=== PATIENT | female | born 1965 | race Caucasian/White ===

== ENCOUNTER 2018-05-19 11:32 | Emergency (ER) | payer SELFPAY ==
[2018-05-19] VITALS (7 sets, daily range): BP systolic 123–175; BP diastolic 59–92; PULSE 59–68; RESP 15–22; TEMP 36.8; O2SAT 95–99; BMI 55.0
--- NOTE | 2018-05-19 11:55 | EKG12_ITS ---
Test Reason : CP Blood Pressure : / mmHG Vent. Rate : 061 BPM Atrial Rate : 061 BPM P-R Int : 138 ms QRS Dur : 070 ms QT Int : 404 ms P-R-T Axes : 047 -20 -25 degrees QTc Int : 406 ms Normal sinus rhythm Low voltage QRS Inferior infarct , age undetermined Abnormal ECG Confirmed by NORA THORNTON, ROBYN ([id number]), photograph editor KAROLINA JIMENEZ ([id number]) on 05/23/2018 11:42:16 AM Referred By: ELVIA Confirmed By:ROBYN MELENDEZ MD
--- NOTE | 2018-05-19 11:55 | RAD_ITS ---
STUDY: X-RAY CHEST REASON FOR EXAM: Female, 53 years old. Chest pain. TECHNIQUE: Single AP portable view of the chest. COMPARISON: None. FINDINGS: Low lung volumes. Cardiac silhouette unremarkable. Pulmonary vascularity unremarkable. Aorta unremarkable. No focal patchy airspace opacities. No pleural effusions. Upper abdomen unremarkable. Osseous structures intact. No pneumothorax. Degenerative changes of the spine. RAD/Chest 1 View (Portable) IMPRESSION: No acute cardiopulmonary findings Electronically Signed: Scott Rose DO at 12:34 EDT Tel , Service support ,
--- NOTE | 2018-05-19 11:56 | ED.VIS.GEN ---
History of Present Illness Chief Complaint: Chest Pain Detail of Chief Complaint: Onset 11 AM while using computer Informant: Patient Onset: Today Context: Sudden Onset Timing: Continuous Quality: Pressure mid chest Location: Central Current Severity: Mild Maximum Severity: Moderate Worsened by: Nothing Relieved by: Nothing Associated Symptoms: Bilateral jaw pain and tingling right upper extremity, mild dyspnea Narrative: Patient is a middle-aged woman who has history of panic attacks presents with chest heaviness that did not subside with relaxation techniques and associated with bilateral jaw pain, right upper extremity numbness and mild shortness of breath. She denied nausea or diaphoresis. She denies history of PE or DVT. She had a hysterectomy 5 years ago for stage Ib uterine cancer. She denies recent surgery, travel, immobilization. She denies leg pain, swelling or discoloration. Father had cardiac catheterization with angioplasty early 50s. She states he was a smoker and she is not. She has no other complaints. - Past Medical History (1) Panic attacks Status: Acute Past Medical History - Allergies and Home Meds Allergies/Adverse Reactions: Allergies doxycycline Allergy (Verified 05/19/18 11:42) Wong Primary Care Physician: Care Physician,No Primary [Primary Care Provider] - Prior records reviewed: Yes Surgical History: hysterectomy Lives: Spouse/ Significant Other Smoking Status: Never smoker Alcohol: None Drugs: None Review of Systems General: Denies: Chills, Fever, Malaise, Sweats Eyes: Denies: Visual changes - bilaterally, Blurred Vision - bilaterally, Diplopia ENT: Denies: Bilateral ear pain, Rhinorrhea, Sore throat Cardiovascular: Reports: Chest pain Respiratory: Reports: Dyspnea. Denies: Cough, Sputum, Dyspnea on exertion, Orthopnea, Paroxysmal nocturnal dyspnea Gastrointestinal: Reports: Nausea - When she eats greasy food. Denies: Abdominal pain Genitourinary: Denies: Dysuria, Hematuria, Frequency Musculoskeletal: Denies: Back pain, Extremity Pain Skin: Denies: Rash, Wounds Neurological: Denies: Headache, Weakness, Numbness Psych: Reports: Anxiety Endocrine: Denies: Polyuria, Polydipsia Allergy: Denies: Uticaria Physical Exam Vital Signs/Narrative: Vital Signs Temp Pulse Resp BP Pulse Ox 05/19/18 11:34 98.2 F 65 20 H 175/92 H 99 Inital Vital Signs reviewed: Yes General: Well nourished, Well developed, No Acute Distress Head: Normocephalic, Atraumatic Eyes: Perrl, EOMI ENT: Moist mucous membranes, No rhinorrhea Neck: Supple, Nontender Cardiovascular: Regular rate, Regular rhythm, No murmurs Respiratory: No distress, CTA bilaterally, Chest nontender Abdomen: Soft, Nontender, Nondistended, Normal bowel sounds Back: Nontender, Normal Inspection Extremities: Nontender, No edema, - - There is no asymmetry, swelling, discoloration, leg vein distention, palpable cords or tenderness along the distribution of the deep venous system. Skin: Normal color, No rash Neurological: Alert, Oriented x3, Cranial nerves II-XII grossly intact, Normal Strength, Normal Sensation Psychological: Normal affect, Normal Mood Diagnostic/Tx/Re-eval Impressions Chest X-Ray 05/19/18 11:55 IMPRESSION: No acute cardiopulmonary findings Electronically Signed: Scott Rose DO at 12:34 EDT Tel , Service support , 05/19/18 11:55 Chest 1 View (Portable) [RAD] Stat Laboratory Results 05/19/18 05/19/18 12:25 12:25 WBC 8.0 RBC 5.07 Hgb 14.7 Hct 46.0 MCV 90.7 MCH 29.0 MCHC 32.0 RDW 14.3 RDW Differential 46.3 H Plt Count 210 MPV 11.0 Immature Gran % (Auto) 0.200 Neut % (Auto) 57.0 Lymph % (Auto) 30.9 [place] % (Auto) 8.0 Eos % (Auto) 3.5 Baso % (Auto) 0.4 Absolute Neuts (auto) 4.6 Absolute Lymphs (auto) 2.48 Total Counted Not Reportable Sodium 140 Potassium 4.0 Chloride 106 Carbon Dioxide 28.0 Anion Gap 6 BUN 12 Creatinine 0.79 Estim Creat Clear Calc 78.87 Est GFR (MDRD) Af Amer 99 Est GFR (MDRD) Non-Af 82 BUN/Creatinine Ratio 15.2 Glucose 85 Calcium 9.0 Troponin I < 0.015 - EKG Initial EKG Interpretation: Sinus Rhythm - Ventricular rate 61. Low voltage. [place] interval, QRS duration and QT interval are normal. - Medical Decision Making Patient reports this pain is different than what she is experienced with panic attacks. Since she describes this heaviness with radiation to the right upper extremity which increases likelihood for cardiac disease will obtain cardiac workup. Also need to differentiate between GI and pulmonary. Initial workup was unremarkable. Heart score is 2. Patient was explained risk benefits of going home versus repeat 3-hour troponin. After discussion she agreed to repeat 3-hour troponin. If repeat 3-hour troponin is normal she will go home. Furthermore with heart score of 2 3-hour troponin level part of the LL assay articles indicates 0% of cardiac event 30 days post visit. Repeat troponin is normal. Delta is 0. With 3-hour normal troponin and heart score less than 3 will discharge to home. ED Disposition - Plan for ED Patient: Disposition: Home or Assisted Living Diagnosis: Central chest pain, History of anxiety disorder Instructions: ED Chest Pain Atypical Unkn Cause Referrals: Care Physician,No Primary [Primary Care Provider] - Naya Baez [NON-STAFF] - 3-5 Days
[2018-05-19] MEDS: Aspirin 81 MG TAB.CHEW 324 MG PO (12:04)
[2018-05-19 12:42] LABS: Absolute Lymphocyte Count 2.48 X10^3/ul (0.83-4.51); Absolute Neutrophil Count 4.6 X10^3/uL (2.0-7.7); Basophil# 0.03 X10^3/uL; Basophil% 0.4 % (0-1); Eosinophil# 0.28 X10^3/uL; Eosinophils% 3.5 % (0-5); Hemoglobin 14.7 g/dl (12.0-15.0); Lymphocyte # 2.48 X10^3/ul (4.0); Lymphocyte % 30.9 % (19-41); Mean Corpuscular Volume 90.7 fL (81-99); Monocyte# 0.64 X10^3/uL; Neutrophil # 4.57 X10^3/uL (2.7-7.7); Platelet Count 210 K/mm3 (150-450); RBC Distribution Width CV 14.3 % (11.6-14.6); RBC Distribution Width SD 46.3 fl (35.1-43.9); Red Blood Count 5.07 M/mm3 (4.2-5.4)
[2018-05-19 12:43] LABS: POSITIVE COUNT NO; POSITIVE DIFFERENTIAL NO; POSITIVE MORPHOLOGY NO
[2018-05-19 12:50] LABS: Anion Gap 6 (5-15); BUN 12 mg/dL (7-18); BUN/Creat Ratio 15.2 RATIO (10-20); Chloride 106 mmol/L (98-107); Creatinine, Serum 0.79 mg/dL (0.55-1.02); EST Glomerular Filtration Rate 82 mL/min (>60); Est Glom Filt Rate - Afr Amer 99 mL/min (>60); Estimated Creatinine Clearance 78.87 ml/min; Glucose 85 mg/dL (74-106); Sodium Level 140 mmol/L (136-145)
== END 2018-05-19 16:39 | disposition home or self-care (01) ==
PROVIDERS: Emergency Provider Emergency Medicine
DX: R07.9 Chest pain, unspecified (principal); F41.9 Anxiety disorder, unspecified
CPT/HCPCS: 36415; 71045; 80048; 84484; 85025; 93005; 99284; A4216

== ENCOUNTER 2021-03-05 14:06 | Outpatient (CLI) | payer MEDICARE, SELFPAY | END 2021-03-05 23:59 | disposition short-term general hospital (02) | LOC: LABSPEC 14:07 | PROVIDERS: Visit Provider Physician Assistant | DX: U07.1 COVID-19 (principal) | CPT/HCPCS: 87635; U0003; U0005 ==